=== PATIENT | male | born 1965 | race Caucasian/White ===

== ENCOUNTER 2023-12-11 11:23 | Day surgery (SDC) | payer BC ==
[2023-12-03 15:55] VITALS: BMI 32.0
[~2023-12-11 11:23] MED LIST: LACTATED RINGERS 1,000 ML IV SCH
[2023-12-11] MEDS: LACTATED RINGERS 1,000 ML IV SCH (11:55)
[2023-12-11] MEDS: ATROPINE SULFATE 0.4 MG/ML 1 ML VIAL IM ONE (12:06)
[2023-12-11] MEDS ORDERED: SUCCINYLCHOLINE CHLORIDE 200 MG/10 ML VIAL IV ONE (12:47)
[2023-12-11] MEDS ORDERED: PROPOFOL 10 MG/ML 20 ML VIAL IV ONE (12:47)
[2023-12-11] MEDS ORDERED: MIDAZOLAM 2 MG/2 ML VIAL ONE (12:47)
[2023-12-11] MEDS ORDERED: LIDOCAINE 1% INJ 10MG/ML (20 ML MDV) ONE (12:47)
[2023-12-11] MEDS ORDERED: fentaNYL (PF) 50 MCG/ML 2 ML AMP ONE (12:47)
[2023-12-11 14:22] VITALS: RESP 16; TEMP 97
[2023-12-11 15:17] VITALS: BP 135/84; PULSE 69
--- NOTE | 2023-12-11 15:18 | XR ---
EXAMINATION TYPE: XR chest 1V portable DATE OF EXAM: 12/11/2023 Comparison: Bronchoscopy 12/11/2023 Clinical History: 58-year-old male status post right upper LUNG BIOPSY Findings: Heart mildly enlarged. Mild interstitial density. Possible trace left pleural effusion. No appreciabl e pneumothorax. Impression: 1. Mild cardiomegaly and mild interstitial density. Correlate to exclude CHF with mild pulmonary vasc ular congestion. Possible trace left pleural effusion. 2. No appreciable pneumothorax.
--- NOTE | 2023-12-11 18:35 | FL ---
EXAMINATION TYPE: FL bronchoscopy DATE OF EXAM: 12/11/2023 FLUOROSCOPY BRONCHOSCOPY for dyspnea. 65.3 SEC FL TIME AND 0.[address] BURROWS. 3 images are provide d.
--- NOTE | 2023-12-11 21:06 | PCN ---
PROCEDURE NOTE PROCEDURES: Bronchoscopy; airway examination; therapeutic lavage; BAL, right upper lobe and left upper lobe; brushes, right upper lobe; and transbronchial biopsies, right upper lobe. PREOPERATIVE DIAGNOSES: Pneumonitis/pneumonia/alveolitis. POSTOPERATIVE DIAGNOSES: Pneumonitis/pneumonia/alveolitis. FIRST MILKING WORKER: Dr. Flora Huizar. PROCEDURE DETAILS: The patient's procedure took place in room #1. There was informed consent and universal timeout. Anesthesia provided general endotracheal anesthesia. After the patient was anesthetized and on the ventilator and being fully monitored, the bronchoscope was inserted through the bronchoscope adapter connected to the endotracheal tube. The bronchoscope was pushed through the endotracheal tube out into the distal trachea. Tracheal nu was sharp. We did thorough evaluation of both lungs. The right upper lobe and its 3 segments, right middle lobe and its 2 segments, right lower lobe and its 5 segments, left upper lobe proper and its 2 segments, lingula and its 2 segments, and left lower lobe and its 4 segments all had relatively normal findings other than for some mild to maybe moderate bronchitis. There were some thin secretions noted. There was no dominant mass or tumor. There was some airways inflammation and erythema. Next, we did a BAL of the left upper lobe. Subsequent to that, we did a BAL of the right upper lobe. Next, we did brushes of the right upper lobe under fluoroscopic guidance. Finally, under fluoroscopic guidance, we did multiple transbronchial biopsies to the right upper lobe. The patient tolerated the procedure well. There was no significant bleeding. We got at least 8 good pieces, 2 of which were quite large. There was no immediate complication. As I mentioned, there was no bleeding. We look for a pneumothorax with the fluoroscopy machine, but there was none. A formal chest x-ray will be ordered. The patient tolerated the procedure well and will be recovered. I did speak to the patient's and her friend. Again, there was no immediate complication. MMODL / IJN: [id number] /
[2023-12-12 01:33] LABS: Appearance,BF Hazy (Clear); RBC, Body Fluid 906 /UL (0-2000)
[2023-12-14 09:15] LABS: Nucleated Cells, Body Fluid 53 /UL
== END 2023-12-11 15:36 | disposition home or self-care (01) ==
LOC: ORWHC2ENDO 11:23
PROVIDERS: ATTEND Internal Medicine Critical Care Medicine
DX: J18.9 Pneumonia, unspecified organism (principal); I51.7 Cardiomegaly; Z87.891 Personal history of nicotine dependence; Z88.8 Allergy status to other drugs, medicaments and biological substances; Z88.5 Allergy status to narcotic agent; Z90.49 Acquired absence of other specified parts of digestive tract
CPT/HCPCS: 87798 ×3; 87496; 87498; 87529; 88104; 88108; 88305; 89050; 87502; 87634; 87070; 87205; 87116; 87102; 87206; 87635; 71045; 31628; 31623; 31624; J2250; J0330; J0461; J2001; J3010; J2704; 31622